=== PATIENT | male | born 1960 | race Caucasian/White ===

== ENCOUNTER 2017-06-12 13:17 | Emergency (ER) | payer OTHER ==
[~2017-06-12] VITALS: Ht 182.9 cm; Wt 77.1 kg
[2017-06-12] MEDS ORDERED: METOPROLOL TART25 MG PO (13:27)
[2017-06-12 13:37] VITALS: BP 150/89
== END 2017-06-12 13:39 | disposition home or self-care (01) ==
LOC: M.ERS 13:17
DX: Z76.0 Encounter for issue of repeat prescription (principal); Z91.018 Allergy to other foods